=== PATIENT | female | born 1945 | race Caucasian/White ===

== ENCOUNTER 2024-05-29 09:27 | Outpatient (RCR) | payer MEDICARE, SELFPAY | END 2024-06-03 23:59 | disposition home or self-care (01) | LOC: SCTC 09:27 | PROVIDERS: PCP Internal Medicine; Referring Provider Internal Medicine; Visit Provider Nurse Practitioner Family | DX: D50.9 Iron deficiency anemia, unspecified (principal); E03.9 Hypothyroidism, unspecified; I10 Essential (primary) hypertension | CPT/HCPCS: 99212; G0463 ==

== ENCOUNTER 2024-08-31 09:01 | Outpatient (RCR) | payer MEDICARE, SELFPAY | END 2024-09-01 23:59 | disposition home or self-care (01) | LOC: SCTC 09:01 | PROVIDERS: PCP Internal Medicine; Referring Provider Internal Medicine; Visit Provider Nurse Practitioner Family | DX: D50.9 Iron deficiency anemia, unspecified (principal) | CPT/HCPCS: 99212; G0463 ==

== ENCOUNTER 2024-10-10 12:49 | Outpatient (RCR) | payer MEDICARE, SELFPAY ==
[2024-10-03 15:12] LABS: Basophils % (Auto) 0 % (0-2.5); Eosinophils % (Auto) 0 % (0-10); Hematocrit 31.9 % (36.0-46.0); Hemoglobin 10.1 g/dL (12.0-16.0); Immature Granulocytes % (Auto) 1 % (0-0); Immature Granulocytes Auto 0.03 Thou/mm3 (0.00-0.00); Lymphocytes # (Auto) 0.9 Thou/mm3 (1.0-4.8); Lymphocytes % (Auto) 18 % (10-50); Mean Corpuscular HGB Conc 31.7 g/dl (31.0-37.0); Mean Corpuscular Volume 88 fL (80-100); Monocytes # (Auto) 0.3 Thou/mm3 (0.0-0.8); Monocytes % (Auto) 6 % (0-12); Neutrophils # (Auto) 3.9 Thou/mm3 (1.8-7.7); Neutrophils % (Auto) 76 % (37-80); Nucleated Red Blood Cell % 0 /100 WBC (0); Platelet Count 127 Thou/mm3 (140-440); RDW Standard Deviation 75.7 fL (36.4-46.3); Red Blood Count 3.61 Miln/mm3 (4.00-5.20); White Blood Count 5.1 Thou/mm3 (3.6-11.0)
== END 2024-11-01 23:59 | disposition home or self-care (01) ==
LOC: SCTC 12:49
PROVIDERS: PCP Internal Medicine; Referring Provider Nurse Practitioner Family; Visit Provider Nurse Practitioner Family
DX: D50.9 Iron deficiency anemia, unspecified (principal); E53.8 Deficiency of other specified B group vitamins
CPT/HCPCS: 85025; 96365; 96372; J3420; J7040; J7050; Q0138

== ENCOUNTER 2024-11-15 10:59 | Outpatient (RCR) | payer MEDICARE, SELFPAY ==
--- NOTE | 2024-12-17 22:15 | CTCFLWUP_ITS ---
Patient: JOYCELYN MEANS : 1945 Page 4 of 6 FOLLOW UP NOTE DATE OF SERVICE: 11/15/2024 NAME: JOYCELYN MEANS ACCOUNT: [id number] : 1945 AGE: 79 INTERVAL HISTORY: Chief Complaint Follow-up for bleeding ulcer, ongoing blood transfusions, iron infusions, and B12 injections History of Present Illness The patient presents with a history of a bleeding ulcer, requiring blood transfusions, iron infusions, and B12 injections. They recently completed a 14- day course of antibiotics for suspected H. pylori infection, despite a negative test result which the patient believes may have been a false negative due to antacid use. The patient reports ongoing treatment with Carafate for the ulcer and pantoprazole for acid suppression. They mention having an esophageal hernia, diagnosed during a previous EGD performed a couple of years ago during a hospitalization, which showed no active bleeding at that time. Currently, the patient's stools are brown, not black, suggesting no active gastrointestinal bleeding. The patient expresses concern about proper medication administration, particularly regarding pantoprazole. They understand the need to take it first thing in the morning with water and wait an hour before eating. The patient also acknowledges the importance of dietary modifications in managing their co ndition, including avoiding coffee and hot chocolate, and instead opting for buttermilk, yogurt, or simple breakfast options like bread and jam. They recognize the need for regular meals to prevent acid buildup and promote stomach healing. The patient reports stress as a factor potentially exacerbating their condition and expresses interest in stress management techniques such as breathing exercises and yoga. They are aware of the need to make lifestyle changes, including meal planning and timing, to support their treatment and recovery. Medications and Supplements - Carafate - For ulcer treatment - Pantoprazole - Taken in the morning with water, waiting an hour before eating - Antibiotics - Completed a 14-day course for suspected H. pylori - Prilosec (Omeprazole) - Taken in the past - Calcium carbonate antacid - Taken between meals, no more than 2 per day - Helps with indigestion and bone strength - Tums - Mentioned as equivalent to calcium carbonate antacid Review of Systems Gastrointestinal: Negative for black stools. Positive for esophageal hernia. ONCOLOGY HISTORY:?Clone[facility] Oncology Hx? DIAGNOSIS: Iron deficiency anemia, unspecified [ICD10] D50.9?CloneBlock Dx? B12 deficiency DATE OF DIAGNOSIS: 07/08/2022 STAGE/TNM: Anemia TREATMENT HISTORY: Care?Plan Start?Date Cycle Day Intent FERAheme?4?doses 01/11/2024 1 28 Palliative FERAheme?4?doses 09/12/2024 1 Palliative B?12?monthly 09/12/2024 1 Palliative B?12?initial 09/26/2024 1 28 Palliative HISTORY OF PRESENT ILLNESS: PREVIOUS NOTE: Ms. Means is here at [facility]. No complaints. Patient reports good appetite and energy levels. Ambulating well without assistance. Denies any cough, chest pain, abdominal pain or leg cramps. Patient reports she had a follow-up with Dr. Joe on 04/2024, patient declined colonoscopy and endoscopy due to advanced age, her reasoning for declining was also that she has been feeling well and does not have any bleeding concerns. Patient referred to hematology clinic for iron deficiency anemia that is not responding to oral ferrous sulfate. Ms. Means has been taking liquid oral ferrous sulfate for last few months. She has been having significant nausea. Her last colonoscopy was done more than [address] Johnson. She decided not to continue oral ferrous sulfate. 07/08/2022: Hemoglobin 5.2, MCV 74, WBC 15.0, ANC 13.4, platelets 240,000. 07/28/2022: EGD? 07/28/2022: Ms. Means had 4 units of PRBC transfusion. 11/04/2023: Hemoglobin 10.2, MCV 94.4, WBC 3.41, ANC 3.2, platelets 177,000, iron saturation 8%, TIBC 375 12/29/2023: Hemoglobin 7.2, MCV 88.1, WBC 6.18, ANC 4.66, platelets 225,000, ferritin 4.7, B12 327.0, folate 8.24. 01/11/2024 - 02/01/2024: Ms. Means received 2040 mg of Feraheme over 4 sessions. 02/22/2024: Hemoglobin 11.1, MCV 95.7, WBC 5.2, ANC 3.58, platelets 165,000, ferritin 235.0. 05/05/2024: Hemoglobin 11.9, MCV 96.4, WBCs 5.56, ANC 4.13, platelets 143,000, ferritin 41.7, serum iron 67.0, no iron saturation collected. Laboratory, Imaging, and Diagnostic Test Results - H. 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 Tobacco Use:?Smoked 1/2 pack/jolie x 60 yrs; Smokes 1 pack /week - 6 yrs ETOH?Use:?Denies Drug?Note:?Denies Social?History?Note:?Lives?alone CERTIFIED REGISTERED DENTAL ASSISTANT HISTORY: :?1 Live?Births:?1 Age?1st?:?20 MEDICATIONS: 1. amiodarone - 200 mg 1 tab Daily 2. atorvastatin - 20 mg 1 tab Daily 3. carvedilol - 6.25 mg 1 tab Twice a Day 4. diazePAM - 10 mg 1 tab Daily 5. levothyroxine - 75 mcg 1 tab Daily 6. liothyronine - 5 mcg 1 tab Daily 7. losartan - 50 mg 1 tab Daily 8. sertraline - 100 mg 1 tab Daily?Palabra Meds? Medications Last Reconciled by Sabrina Domingo MA on 11/15/2024 ALLERGIES: No Known Drug Allergies REVIEW OF SYSTEMS: A complete 14-point review of systems was performed and is negative except as noted in interval history. PHYSICAL EXAMINATION:?CloneBlock PE? VITAL SIGNS: Temperature?98, B/P?96/59, Oxygen?Saturation?94% PAIN: 0 - No pain ECOG Performance Status: 0 - Asymptomatic and fully active GENERAL APPEARANCE: Appears well, in no apparent distress, appropriately interactive. HEENT: Normocephalic, no temporal wasting, normal conjunctiva, no scleral icterus, normal hearing, lips without lesions, neck normal range of motion. CARDIOVASCULAR: Not assessed. PULMONARY: Normal respiratory effort, no respiratory distress or use of accessory muscles, speaking in full sentences, no tachypnea. EXTREMITIES: No pedal edema or cyanosis. SKIN: Normal skin appearance. NEUROLOGIC: Alert and oriented x4. PSHYCHIATRIC: Appropriate affect, mood normal, behavior normal, intact thought and speech. LABORATORY DATA: I have personally reviewed and interpreted each of the patient?s relevant lab tests, abnormal findings are below: Date 09/12/24 09/19/24 09/26/24 ??WHITE?BLOOD?COUNT?(Thou/mm3) 5.6 5.9 6.4 ??RED?BLOOD?COUNT?(Miln/mm3) 2.70?L 3.35?L 3.70?L ??HEMOGLOBIN?(gm/dl) 6.5?LL 8.9?L 10.1?L ??HEMATOCRIT?(%) 21.7?LL 28.6?L 32.1?L ??PLATELET?COUNT?(Thou/mm3) 222 189 153 ??NEUTROPHILS?%,?AUTO?(%) 67 75 76 ??LYMPH?%,?AUTO?(%) 23 15 17 ??NEUTROPHILS,?AUTO?(Thou/mm3) 3.7 4.4 4.9 ??GLUCOSE,RANDOM?(mg/dL) ? ? 90 ??BLOOD?UREA?NITROGEN?(mg/dL) ? ? 18 ??CREATININE?(mg/dL) ? ? 1.00 ??SODIUM?(mmol/L) ? ? 139 ??POTASSIUM?(mmol/L) ? ? 4.4 ??CHLORIDE?(mmol/L) ? ? 103 ??CrCl?(CandG)?(ml/min) ? ? 41.77 ??AST/SGOT?(Unit/L) ? ? 12 ??ALT/SGPT?(Unit/L) ? ? 9?L ??ALKALINE?PHOSPHATASE?(Unit/L) ? ? 69 ??BILIRUBIN,?TOTAL?(mg/dL) ? ? 0.5 ??PROTEIN?TOTAL?(gm/dl) ? ? 6.3 ??ALBUMIN,?SERUM?(gm/dl) ? ? 4.2 ??GLOBULIN?(gm/dl) ? ? 2.1?L ??ALBUMIN/GLOBULIN?RATIO ? ? 2.0 ??CALCIUM,?SERUM?(mg/dL) ? ? 9.5 ??CALCIUM?SERUM?(CORRECTED)?(mg/dL) ? ? 9.5 ASSESSMENT/PLAN:?Sandi Covington Assessment/Plan? 1. Iron deficiency anemia. Unable to tolerate oral ferrous sulfate which was causing significant nausea B12 deficiency, on monthly injections Status post feraheme infusions, next infusion on 10/03/2024 Peptic ulcer disease (EGD 07/28/2022) Hiatal hernia Last follow-up with Dr. Joe, GI was on 04/2024, patient reports she declined endoscopy and colonoscopy her reasoning is her advanced age and that she feels well and does not have any bleeding concerns. Patient continues to declined colonoscopy and endoscopy. Patient with history of bleeding ulcer presenting for follow-up after recent treatment with antibiotics and ongoing management with Carafate, pantoprazole, and supportive care including blood transfusions, iron infusions, and B12 injections. Peptic Ulcer Disease Assessment: Patient has a history of bleeding ulcer, confirmed by previous EGD during last hospitalization. Recent negative H. pylori test, but patient believes it may be a false negative due to antacid use. Completed a 14-day course of antibiotics, though H. pylori infection was not confirmed. Currently on Carafate and pantoprazole for ulcer management. Stools are brown, indicating no active bleeding. Patient also has an esophageal hernia. Current management focuses on acid suppression, mucosal protection, and dietary modifications. Plan: - Continue pantoprazole, to be taken first thing in the morning with water, waiting an hour before eating - Continue Carafate as prescribed - Implement dietary modifications: - Avoid coffee, hot chocolate, and caffeinated drinks (e.g., Pepsi, Coca-Cola) - Consume regular meals and snacks every 2-3 hours - Include foods like bananas, potatoes, apples, avocados, plums, bread, and cucumber - Avoid eating after 6 or 7 p.m. - Drink plenty of water to dilute stomach acid - Add astc-znp-ovlyeti calcium carbonate antacid (e.g., Tums, Gelusil) between meals, maximum 2 per day - Order blood tests to monitor patient's condition - Follow up with Dr. Reed on Wednesday - Stress management: - Practice breathing exercises and yoga - Implement positive reinforcement and gratitude techniques - Reassess in one month to evaluate healing progress Anemia Assessment: Patient has been receiving blood transfusions, iron infusions, and B12 injections, likely due to blood loss from the peptic ulcer. Current hemoglobin levels and iron studies are not provided, but ongoing supportive care suggests persistent anemia. Plan: - Continue iron infusions as scheduled - Continue B12 injections as prescribed - Monitor hemoglobin levels with ordered blood tests - Adjust treatment based on blood test results 2. Hypothyroidism, hypertension, asymptomatic, Continue following up with PCP for blood pressure check and chronic disease management CBC every 4 weeks as needed CBC CMP iron panel ferritin folate after completion of Feraheme infusions Order # Description [id number] CBC + Comprehensive Metabolic Panel [id number] Lab Appointment ORDERS: Order # Description [id number] CBC + Comprehensive Metabolic Panel [id number] Lab Appointment [id number] Comprehensive Metabolic Panel - 12 + CBC with Auto Diff [id number] Iron Panel + Ferritin + Vitamin B-12 + Folic Acid; Serum + Lactate Dehydrogenase (LDH) + Assay Of Haptoglobin Quant [id number] MD Follow Up 3 Months RETURN TO CLINIC: BILLING AND COMPLIANCE: I reviewed external records from providers outside my specialty as summarized above. I spent a total of 50 minutes on this patient?s care on the day of their visit excluding time spent related to any billed procedures. This time includes time spent with the patient as well as time spent documenting in the medical record, reviewing patients records and tests, obtaining history, placing orders, communicating with other healthcare professionals, counseling the patient, family or caregiver, and/or care coordination for the diagnoses above. Electronically Signed by: Marcello Covington MD T: 10:12 PM CC: PCP: Minoo Reed Referring: Minoo Reed This document was completed utilizing speech recognition software. Grammatical errors, random word insertions, pronoun errors, and incomplete sentences are an occasional consequence of this system due to software limitations, ambient noise, and hardware issues. Any formal questions or concerns about the content, text or information contained within the body of this dictation should be directly addressed to the provider for clarification.
== END 2024-12-02 23:59 | disposition home or self-care (01) ==
LOC: SCTC 10:59
PROVIDERS: PCP Internal Medicine; Referring Provider Internal Medicine; Visit Provider Internal Medicine Hematology & Oncology
DX: E53.8 Deficiency of other specified B group vitamins (principal); D50.9 Iron deficiency anemia, unspecified; K44.9 Diaphragmatic hernia without obstruction or gangrene; Z87.11 Personal history of peptic ulcer disease; E03.9 Hypothyroidism, unspecified; I10 Essential (primary) hypertension
CPT/HCPCS: 96372; 99212; J3420; G0463

== ENCOUNTER 2024-12-05 13:24 | Outpatient (RCR) | payer MEDICARE, SELFPAY | END 2025-01-01 23:59 | disposition home or self-care (01) | LOC: SCTC 13:24 | PROVIDERS: PCP Internal Medicine; Referring Provider Internal Medicine; Visit Provider Nurse Practitioner Family | DX: E53.8 Deficiency of other specified B group vitamins (principal); D50.9 Iron deficiency anemia, unspecified; Z87.11 Personal history of peptic ulcer disease | CPT/HCPCS: 96372; J3420 ==

== ENCOUNTER 2025-01-10 13:21 | Outpatient (RCR) | payer MEDICARE, SELFPAY | END 2025-02-01 23:59 | disposition home or self-care (01) | LOC: SCTC 13:21 | PROVIDERS: PCP Internal Medicine; Referring Provider Internal Medicine; Visit Provider Internal Medicine Hematology & Oncology | DX: E53.8 Deficiency of other specified B group vitamins (principal); D50.9 Iron deficiency anemia, unspecified; K27.9 Peptic ulcer, site unspecified, unspecified as acute or chronic, without hemorrhage or perforation; E03.9 Hypothyroidism, unspecified; I10 Essential (primary) hypertension | CPT/HCPCS: 96372; J3420 ==

== ENCOUNTER 2025-02-14 10:19 | Outpatient (RCR) | payer MEDICARE, SELFPAY | END 2025-03-04 23:59 | disposition home or self-care (01) | LOC: SCTC 10:19 | PROVIDERS: PCP Internal Medicine; Referring Provider Internal Medicine; Visit Provider Nurse Practitioner Family | DX: Z09 Encounter for follow-up examination after completed treatment for conditions other than malignant neoplasm (principal); Z86.2 Personal history of diseases of the blood and blood-forming organs and certain disorders involving the immune mechanism; Z87.11 Personal history of peptic ulcer disease; E53.8 Deficiency of other specified B group vitamins; E03.9 Hypothyroidism, unspecified; I10 Essential (primary) hypertension | CPT/HCPCS: 96372; 99212; J3420; G0463 ==

== ENCOUNTER 2025-03-08 12:56 | Outpatient (RCR) | payer MEDICARE, SELFPAY | END 2025-04-03 23:59 | disposition home or self-care (01) | LOC: SCTC 12:56 | PROVIDERS: PCP Internal Medicine; Referring Provider Internal Medicine; Visit Provider Internal Medicine Hematology & Oncology | DX: E53.8 Deficiency of other specified B group vitamins (principal); Z87.11 Personal history of peptic ulcer disease; Z86.2 Personal history of diseases of the blood and blood-forming organs and certain disorders involving the immune mechanism | CPT/HCPCS: 96372; J3420 ==

== ENCOUNTER 2025-04-25 09:42 | Emergency (ER) | payer MEDICARE, SELFPAY ==
[2025-04-25] VITALS (12 sets, daily range): BP systolic 125–195; BP diastolic 50–77; PULSE 55–62; RESP 15–20; TEMP 36.4–37.1; O2SAT 94–98; BMI 24.5
--- NOTE | 2025-04-25 10:18 | PD.EDRME ---
Rapid Medical Screening Exam RME Arrival date/time: 04/25/25 09:42 79-year-old female presents to the emergency department requesting blood transfusion patient states she typically gets blood transfusion and iron infusions at the cancer treatment center but they do not have any beds available today. Patient's hemoglobin yesterday was 7.3 Chief Complaint: Recheck/Abnormal Lab/Rx Vital signs: Vital Signs Temperature 98.7 F 04/25/25 10:11 Pulse Rate 60 04/25/25 10:11 Respiratory Rate 18 04/25/25 10:11 Blood Pressure 125/62 04/25/25 10:11 Pulse Oximetry (%) 95 04/25/25 10:11 Oxygen Delivery Method Room Air 04/25/25 10:11
[2025-04-25 10:55] LABS: Basophils # (Auto) 0.0 Thou/mm3 (0.0-0.2); Basophils % (Auto) 0 % (0-2.5); Eosinophils # (Auto) 0.0 Thou/mm3 (0.0-0.5); Eosinophils % (Auto) 1 % (0-10); Hematocrit 22.6 % (36.0-46.0); Immature Granulocytes Auto 0.04 Thou/mm3 (0.00-0.00); Lymphocytes # (Auto) 0.8 Thou/mm3 (1.0-4.8); Lymphocytes % (Auto) 18 % (10-50); Mean Corpuscular HGB Conc 30.5 g/dl (31.0-37.0); Mean Corpuscular Hemoglobin 28.9 pg (25.0-35.0); Mean Corpuscular Volume 95 fL (80-100); Monocytes # (Auto) 0.3 Thou/mm3 (0.0-0.8); Monocytes % (Auto) 7 % (0-12); Neutrophils # (Auto) 3.3 Thou/mm3 (1.8-7.7); Neutrophils % (Auto) 73 % (37-80); Nucleated Red Blood Cell # 0.00 Thou/mm3 (0.00-0.00); Nucleated Red Blood Cell % 0 /100 WBC (0); Platelet Count 173 Thou/mm3 (140-440); RDW Standard Deviation 48.8 fL (36.4-46.3); Red Blood Count 2.39 Miln/mm3 (4.00-5.20); White Blood Count 4.6 Thou/mm3 (3.6-11.0)
[2025-04-25 11:00] LABS: Hemoglobin 6.9 g/dL (12.0-16.0)
[2025-04-25 11:08] LABS: INR 1.1 (0.9-1.3); Partial Thromboplastin Time 21.9 Seconds (22.0-36.0); Prothrombin Time 11.4 Seconds (9.0-12.2)
[2025-04-25 11:22] LABS: Alanine Aminotransferase < 7 U/L (10-49); Albumin, Serum 4.3 gm/dL (3.4-4.8); Albumin/Globulin Ratio 2.9 (1.2-2.2); Alkaline Phosphatase 62 U/L (46-116); Anion Gap 8 (7-16); Aspartate Amino Transferase < 10 U/L (0-34); BUN/Creatinine Ratio 14 Ratio (12-20); Bilirubin,Total 0.4 mg/dL (0.3-1.2); Blood Urea Nitrogen 14 mg/dL (9-23); Calcium 8.4 mg/dL (8.3-10.6); Calcium (Corrected) 8.4 mg/dL (8.5-10.1); Carbon Dioxide 25.1 mMol/L (20.0-31.0); Chloride 111 mMol/L (98-107); Creatinine (Component) 1.0 mg/dL (0.6-1.3); Estimated Creatinine Clearance 38.7 mL/min (>60); Globulin 1.5 gm/dL (2.3-3.5); Glucose 104 mg/dL (74-106); Osmolality,Calculated 287 (275-295); Potassium 4.4 mMol/L (3.4-5.1); Sodium 144 mMol/L (136-145); Total Protein 5.8 gm/dL (5.7-8.2); eGFR 57 See Note
--- NOTE | 2025-04-25 12:02 | PD.EDRECHK ---
ED Recheck Abnl Lab Rx-RME/HPI General Chief Complaint: Recheck/Abnormal Lab/Rx Stated Complaint: sent by [facility] for blood transfusion Arrival date/time: 04/25/25 09:42 RME / HPI RME / HPI narrative: 04/25/25 09:42 79-year-old female presents to the emergency department requesting blood transfusion patient states she typically gets blood transfusion and iron infusions at the cancer treatment center but they do not have any beds available today. Patient's hemoglobin yesterday was 7.3 DR. BONILLA MAIN ED EVALUATION 79 year old female with history of iron deficiency anemia requiring blood transfusions presents to the ED today, referred by [facility] for blood transfusion today. Patient states she had been feeling globally weak and short of breath that is worse with exertion for several days. States she had labs performed 2 days ago showing low hemoglobin. Followed up with the [facility] today for blood transfusion and told there were no beds available and advised she come here. Denies fever, chills, sweating. Denies chest pain, cough. Denies nausea, vomiting, diarrhea, constipation. Denies dysuria, urinary frequency and urgency. Related Data Home Medications ?Medication ?Instructions ?Recorded ?Confirmed benzonatate 200 mg capsule 200 mg PO TID PRN Cough 07/28/22 07/28/22 diazepam 10 mg tablet 10 mg PO QHSPRN PRN Insomnia 07/28/22 07/28/22 duloxetine 30 mg capsule,delayed 30 mg PO BID 07/28/22 07/28/22 release levothyroxine 100 mcg tablet 75 mcg PO QDAY 07/28/22 01/03/24 (Synthroid) liothyronine 5 mcg tablet 10 mcg PO QDAY 07/28/22 07/28/22 amiodarone 200 mg tablet 200 mg PO QDAY 01/03/24 01/03/24 aspirin 81 mg tablet 81 mg PO QDAY 01/03/24 01/03/24 atorvastatin 20 mg tablet 20 mg PO QDAY 01/03/24 01/03/24 bumetanide 1 mg tablet 1 mg PO QDAY 01/03/24 01/03/24 carvedilol 6.25 mg tablet 6.25 mg PO BID 01/03/24 01/03/24 famotidine 20 mg tablet 20 mg PO QDAY 01/03/24 01/03/24 ferrous sulfate 143 mg PO QDAY 01/03/24 01/03/24 losartan 50 mg tablet 50 mg PO QDAY 01/03/24 01/03/24 sertraline 100 mg tablet 100 mg PO QDAY 01/03/24 01/03/24 Previous Rx's ?Medication ?Instructions ?Recorded amiodarone 200 mg tablet 200 mg PO BID #60 tabs 08/01/22 bumetanide 2 mg tablet 2 mg PO QDAY #30 tabs 08/01/22 carvedilol 3.125 mg tablet 3.125 mg PO BID #60 tabs 08/01/22 pantoprazole 40 mg tablet,delayed 40 mg PO BID #45 tabs 08/01/22 release (Protonix) Allergies Allergy/AdvReac Type Severity Reaction Status Date / Time No Known Drug Allergies Allergy Verified 01/03/24 16:16 Review of Systems Review of Systems Systems Reviewed: All systems reviewed, normal except as documented Past Medical History Past Medical History CARDIAC: Positive Cardiac Disorders, Myocardial Infarction, Cardiac Arrhythmia, Atrial Fibrillation, Coronary Artery Disease and Hypertension RESPIRATORY: Positive Chronic Obstructive Pulmonary Disease (COPD) ENDOCRINE: Positive Hypothyroidism HEMATOLOGIC: Positive Anemia OTHER HISTORY: Positive Blood Transfusions Surgical History SURGICAL: Positive Coronary Stent (X2) and Cardiac Catheterization Social History SMOKING STATUS: Current some day smoker ED Exam Narrative Physical exam: GENERAL APPEARANCE: alert and oriented x 4, well-developed, well-nourished, no acute distress HEENT: Normocephalic, atraumatic; pupils equal, round, reactive to light; EOMI; mucous membranes pink, moist; oropharynx clear NECK: Supple LUNGS: Mild wheezing on the right lung; no rales, no rhonchi HEART: Regular rate, regular rhythm; normal S1, S2; no murmurs ABDOMEN: non distended; normal BS; soft, no tenderness, no guarding, no rebound; no masses, no organomegaly, no hernia EXTREMITIES: atraumatic; no edema NEUROLOGIC: awake; alert and oriented x4; cranial nerves II-XII grossly intact; no focal sensory or motor deficits PSYCHIATRIC: appropriate mood and affect SKIN: warm, dry, normal color; no rashes Course Quality Measures none Orders Category Date Time Status Insert IV NOW Care 04/25/25 10:18 Active Transfuse,blood/blood products NOW Care 04/25/25 13:06 Active Antibody Identification Stat Lab 04/25/25 10:29 Completed CBC Stat Lab 04/25/25 10:29 Completed Comprehensive Metabolic Panel Stat Lab 04/25/25 10:29 Completed Partial Thromboplastin Time Stat Lab 04/25/25 10:29 Completed Path Review Blood Smear Stat Lab 04/25/25 10:29 Completed Prothrombin Time with INR Stat Lab 04/25/25 10:29 Completed Red Blood Cells Stat Lab 04/25/25 10:29 Completed Type and Screen Stat Lab 04/25/25 10:29 Completed Vital Signs Vital signs: Vital Signs Temperature 98.7 F 04/25/25 10:11 Pulse Rate 60 04/25/25 10:11 Respiratory Rate 18 04/25/25 10:11 Blood Pressure 125/62 04/25/25 10:11 Pulse Oximetry (%) 95 04/25/25 10:11 Oxygen Delivery Method Room Air 04/25/25 10:11 Pulse ox is 95% on room air which is adequate. Recheck / Abnormal Lab / Rx MDM Narrative MDM Narrative:: Diana Jean Baptiste am scribing for and in the presence of Dr. Bonilla. Patient data External records reviewed:: [facility] previous records Clinical information provided by:: patient Social determinants that could affect healthcare access:: none Patient has the following chronic illnesses:: iron deficiency anemia requiring blood transfusions How is presenting disease/condition affected by chronic disease/condition?: exacerbated by Evaluation data The following diagnostics were reviewed and interpreted by me:: lab results Lab and/or radiology exams considered but not ordered:: None Interpretation Summary: H/H 6.9 Medications / Prescriptions Medications or Prescriptions considered but not ordered:: None Medication administrations:: See above Consultations Consultation(s) initiated? (list below): No Diagnosis Recheck Differential Diagnosis: other (encounter for blood tranfusion, anemia ) Most likely diagnosis given after review of the tests above:: Symptomatic anemia Transfusion of blood during current hospitalization Admission Indicated Admission indicated?: not indicated Admission Request Was there a request for admission?: No Disposition Plan Disposition Plan: Discharge Discharge Attestation Discharge Attestation: The patient and all family members were given an opportunity to ask questions and understood the discharge instructions. Discharge instructions specifically effects, indications for sooner follow up or return to the emergency department, and the expected course of current diagnosis. Patient condition: Stable Discharge Plan Plan Patient Disposition: HOME (Self Care) Prescriptions/Referrals Prescriptions/Med Rec: No Action benzonatate 200 mg Capsule 200 mg PO TID PRN (Reason: Cough) liothyronine 5 mcg Tablet 10 mcg PO QDAY levothyroxine [Synthroid] 100 mcg Tablet 75 mcg PO QDAY diazepam 10 mg Tablet 10 mg PO QHSPRN PRN (Reason: Insomnia) duloxetine 30 mg Capsule,Delayed Release(Dr/Ec) 30 mg PO BID amiodarone 200 mg Tablet 200 mg PO BID Qty: 60 0RF carvedilol 3.125 mg Tablet 3.125 mg PO BID Qty: 60 0RF bumetanide 2 mg tablet 2 mg PO QDAY Qty: 30 0RF pantoprazole [Protonix] 40 mg tablet,delayed release (DR/EC) 40 mg PO BID Qty: 45 0RF Rx Instructions: Take 40mg PO BID for 14 days then 40mg PO Qday thereafter. losartan 50 mg Tablet 50 mg PO QDAY carvedilol 6.25 mg Tablet 6.25 mg PO BID Rx Instructions: must administer with a meal/food atorvastatin 20 mg Tablet 20 mg PO QDAY amiodarone 200 mg Tablet 200 mg PO QDAY sertraline 100 mg Tablet 100 mg PO QDAY famotidine 20 mg Tablet 20 mg PO QDAY bumetanide 1 mg Tablet 1 mg PO QDAY aspirin 81 mg Tablet 81 mg PO QDAY ferrous sulfate 47.5 mg iron Tablet Extended Release 143 mg PO QDAY Referrals: Minoo Reed MD [Primary Care Provider] - In 1 week Problem List Clinical Impression: Symptomatic anemia, Transfusion of blood during current hospitalization Patient/Caregiver Discharge Instructions Education Materials: ED Anemia Type Not Specified Print Language: Portuguese Stand Alone Forms: Lucia Award Info., Patient Portal Info Letter
[2025-04-25 12:56] LABS: Path Review Blood Smear Sent to Pathologist
== END 2025-04-25 19:00 | disposition home or self-care (01) ==
PROVIDERS: Nurse Practitioner Primary Care; Emergency Provider Emergency Medicine; PCP Internal Medicine
DX: D64.9 Anemia, unspecified (principal)
CPT/HCPCS: 36430; 36415; 80053; 85025; 85610; 85730; 86850; 86870; 86900; 86901; 86921; 86922; 99285; P9016

== ENCOUNTER 2025-05-02 14:00 | Outpatient (RCR) | payer MEDICARE, SELFPAY | END 2025-05-04 23:59 | disposition home or self-care (01) | LOC: SCTC 14:00 | PROVIDERS: PCP Internal Medicine; Referring Provider Internal Medicine; Visit Provider Nurse Practitioner Family | DX: D50.9 Iron deficiency anemia, unspecified (principal); E53.8 Deficiency of other specified B group vitamins; K92.1 Melena; Z87.11 Personal history of peptic ulcer disease; E03.9 Hypothyroidism, unspecified; I10 Essential (primary) hypertension | CPT/HCPCS: 96372; 99212; J3420; G0463 ==

== ENCOUNTER 2025-05-24 14:01 | Outpatient (RCR) | payer MEDICARE, SELFPAY ==
[2025-05-10 13:37] LABS: Hematocrit 27.8 % (36.0-46.0)
[2025-05-10 14:08] LABS: Hemoglobin 8.6 g/dL (12.0-16.0)
== END 2025-06-03 23:59 | disposition home or self-care (01) ==
LOC: SCTC 14:01
PROVIDERS: PCP Internal Medicine; Referring Provider Internal Medicine; Visit Provider Nurse Practitioner Family
DX: D50.9 Iron deficiency anemia, unspecified (principal); E53.8 Deficiency of other specified B group vitamins; E03.9 Hypothyroidism, unspecified; I10 Essential (primary) hypertension; Z87.11 Personal history of peptic ulcer disease
CPT/HCPCS: 85014; 85018; 96365; 96372; J3420; J3490; J7040; Q0138

== ENCOUNTER 2025-06-26 12:54 | Outpatient (RCR) | payer MEDICARE, SELFPAY | END 2025-07-04 23:59 | disposition home or self-care (01) | LOC: SCTC 12:54 | PROVIDERS: PCP Internal Medicine; Referring Provider Internal Medicine; Visit Provider Nurse Practitioner Family | DX: D50.9 Iron deficiency anemia, unspecified (principal); E53.8 Deficiency of other specified B group vitamins; E03.9 Hypothyroidism, unspecified; I10 Essential (primary) hypertension; Z87.11 Personal history of peptic ulcer disease | CPT/HCPCS: 96372; 96374; 99212; J3420; G0463 ==